=== PATIENT | female | born 1940 | race Caucasian/White ===

== ENCOUNTER 2017-03-05 20:33 | Emergency (ER) | payer MEDICARE ==
[~2017-03-05 20:33] MED LIST: ALBU8I INH; ASPI81TA11 PO; B COTAB3 PO; BUTCHERS BROOM PO; CALC600T12 PO; COEN400C PO; CORDYCEPS PO; FLAX10008 PO; POTA99TA12 PO; REDCAP2 PO; TAB-TAB PO; VITA5000 PO; [UNRECOGNIZED DRUG - CODE] PO; [UNRECOGNIZED DRUG - CODE] PO
[2017-03-05 20:36] VITALS: BP 173/96; PULSE 80; RESP 16; O2SAT 98
== END 2017-03-05 21:39 | disposition left against medical advice (07) ==
LOC: NED 20:33
DX: Z53.29 Procedure and treatment not carried out because of patient's decision for other reasons (principal)
CPT/HCPCS: 99281